=== PATIENT | female | born 1965 | race Caucasian/White ===

== ENCOUNTER 2018-02-25 19:06 | Emergency (ER) | payer OTHER ==
[~2018-02-25] VITALS: Ht 162.6 cm; Wt 45.4 kg
--- NOTE | 2018-02-25 19:24 | NUR ---
GARRY MORALES AT BEDSIDE.
--- NOTE | 2018-02-25 19:29 | NUR ---
Patient discharged to home in stable conditon. Written and verbal after care instructions given. Patient verbalizes understanding of instructions. Ambulated from ER with stable gait. All belongings with patient. VSS
[2018-02-25 19:32] VITALS: BP 102/68
== END 2018-02-25 19:34 | disposition home or self-care (01) ==
LOC: ER 19:06
DX: J20.8 Acute bronchitis due to other specified organisms (principal); B96.89 Other specified bacterial agents as the cause of diseases classified elsewhere; Z88.0 Allergy status to penicillin
CPT/HCPCS: A4663

== ENCOUNTER 2019-01-03 06:29 | Inpatient (IN) | payer OTHER ==
[2019-01-03] VITALS (19 sets, daily range): BP systolic 73–136; BP diastolic 30–74
[~2019-01-03] VITALS: Ht 160 cm; Wt 45.4 kg
--- NOTE | 2019-01-03 07:03 | NUR ---
Dr Carter at the bedside for MSE.
[2019-01-03] MEDS ORDERED: IPRATROPIUM BROMIDE 0.5 MG/2.5 ML NEBU NEB ONE (07:15)
[2019-01-03] MEDS ORDERED: ALBUTEROL SULFATE 2.5 MG/3 ML NEBU NEB ONE (07:15)
[2019-01-03] MEDS: methylPREDNISolone SOD SUCC 125 MG/2 ML VIAL IV ONE ×2 (07:16→08:01)
[2019-01-03] MEDS: IV NORMAL SALINE 1000 ML BAG IV ONE ×2 (07:18→08:00)
[2019-01-03] MEDS ORDERED: ALBUTEROL SULFATE 2.5 MG/3 ML NEBU ONE (07:20)
[2019-01-03] MEDS ORDERED: IPRATROPIUM BROMIDE 0.5 MG/2.5 ML NEBU ONE (07:20)
--- NOTE | 2019-01-03 07:22 | NUR ---
Pt refused HL, blood draw, IV meds. Dr Carter made aware, and spoke to Pt.
[2019-01-03] MEDS ORDERED: LEVOFLOXACIN 750MG/D5W 150 ML IV ONE ×2 (07:59→08:00)
[2019-01-03] MEDS ORDERED: methylPREDNISolone SOD SUCC 125 MG/2 ML VIAL ONE (07:59)
[2019-01-03] MEDS ORDERED: CEFEPIME HCL 1 G VIAL ONE (07:59)
[2019-01-03] MEDS ORDERED: CEFEPIME HCL 1 G in IV DEXTROSE 5% 50 ML IV ONE (08:00)
[2019-01-03] MEDS ORDERED: IV NORMAL SALINE 500 ML BAG IV ONE ×2 (08:00→08:45)
[2019-01-03] MEDS ORDERED: VANCOMYCIN IV 1,000 MG in IV DEXTROSE 5% 250 ML IV ONE (08:00)
[2019-01-03] MEDS ORDERED: VANCOMYCIN IV 200 ML ONE (08:00)
--- NOTE | 2019-01-03 08:00 | NUR ---
Pt agreed to HL, IV ABX, blood draw.
[2019-01-03 08:11] LABS: BASOPHILS # (AUTO) 0.1 K/uL (0.0-8.0); BASOPHILS % (AUTO) 0.5 % (0.0-2.0); EOSINOPHILS # (AUTO) 0.1 K/uL (0.0-0.7); EOSINOPHILS % (AUTO) 0.5 % (0.0-7.0); HEMOGLOBIN 12.1 g/dL (10.9-14.3); LYMPHOCYTES # (AUTO) 1.8 K/uL (20.0-40.0); LYMPHOCYTES % (AUTO) 10.7 % (20.5-51.5); MEAN CORPUSCULAR HEMOGLOBIN 30.7 uug (24.7-32.8); MEAN CORPUSCULAR HGB CONC 34 g/dL (32.3-35.6); MEAN CORPUSCULAR VOLUME 91.4 fL (75.5-95.3); MONOCYTES # (AUTO) 1.3 K/uL (2.0-10.0); MONOCYTES % (AUTO) 7.9 % (0.0-11.0); NEUTROPHILS # (AUTO) 13.7 K/uL (1.8-8.9); NEUTROPHILS % (AUTO) 80.4 % (38.5-71.5); PLATELET COUNT (AUTO) 291 K/uL (179-408); RED BLOOD CELL COUNT(AUTO) 3.93 MIL/uL (3.63-4.92)
[2019-01-03 08:17] LABS: CREATININE 0.9 mg/dL (0.6-1.3)
[2019-01-03 08:29] LABS: BILIRUBIN,DIRECT 0.5 mg/dL (0.0-0.2); BILIRUBIN,TOTAL 1.9 mg/dL (0.2-1.0); TOTAL PROTEIN, SERUM 7.5 g/dL (6.4-8.2)
--- NOTE | 2019-01-03 08:40 | NUR ---
Dr Carter made aware of Hypotension, order recieved.
--- NOTE | 2019-01-03 08:56 | NUR ---
Customer Support Specialist notified of PICC line insertion, ETA 1130 for PICC line Nurse Maryan.
--- NOTE | 2019-01-03 08:57 | NUR ---
Pt is resting in bed,denies pain. O2 on room air is 98%. No S/S Hypotension.
--- NOTE | 2019-01-03 09:10 | NUR ---
Placed a call to [facility] for admit, awaiting call back.
[2019-01-03] MEDS ORDERED: IV NORMAL SALINE 1000 ML BAG IV ONE (09:15)
[2019-01-03] MEDS ORDERED: DOPamine IV DRIP 400 MG/250ML 250 ML ONE (09:19)
[2019-01-03 10:00] LABS: *BILIRUBIN,URIN NEGATIVE (NEGATIVE); *BLOOD, URINE NEGATIVE (NEGATIVE); *CLARITY,URINE CLEAR (CLEAR); *COLOR,URINE YELLOW (YELLOW); *KETONES,URINE NEGATIVE (NEGATIVE); LEUKOCYTE ESTERASE ,URINE 1+ (NEGATIVE); NITRITE, URINE NEGATIVE (NEGATIVE); UGLUCOSE NEGATIVE (NEGATIVE)
--- NOTE | 2019-01-03 10:05 | NUR ---
Increased Dopamine to 3mcg/kg/hr, per protocol.
[2019-01-03 10:06] LABS: BACTERIA,URINE FEW /HPF (NONE SEEN); RBC,URINE NONE SEEN /HPF (0-3); SQUAMOUS EPITHELIAL CELL,UR FEW /HPF (NONE SEEN); WBC,URINE 0-3 /HPF (0-3)
--- NOTE | 2019-01-03 10:12 | NUR ---
Dopamin increased to 4mcg/kg/hr, pt is awake a/o X4. HR 107, BP 73/45.
--- NOTE | 2019-01-03 10:16 | NUR ---
Handsoff report given to Julita Wang CCU RN. Dr Iqbal is at the bedside.
--- NOTE | 2019-01-03 10:16 | NUR ---
Recieved report from [facility]. Pt in rm 4A, status changed to CCU. Pt is awake, alert and orientedx3. Appears weak and pale ut able to move all extremeties well. Pt is on Dopamine drip at 3mcg/kg/min infusing well via right AC patent and intact, to support for low BP in the 70-80systolic.
[2019-01-03 10:17] LABS: *AMPHETAMINE, URINE POSITIVE (NEGATIVE); *BARBITURATE, URINE NEGATIVE (NEGATIVE); *CANNABINOID, URINE NEGATIVE (NEGATIVE); *COCCAINE, URINE NEGATIVE (NEGATIVE); *OPIATE, URINE POSITIVE (NEGATIVE); *PHENCYCLIDINE SCREEN,URINE NEGATIVE (NEGATIVE)
--- NOTE | 2019-01-03 10:30 | NUR ---
1030 SBP is persistently low 78/48. Increased Dopamine drip up to 5mcg/kg/min. IV site is good. Pt denies of any chest pains. is anderson.
--- NOTE | 2019-01-03 10:40 | NUR ---
1040 Seen and examined by Liat SCOTT with new admitting orders.
[2019-01-03] MEDS ORDERED: IPRATROPIUM BROMIDE 0.5 MG/2.5 ML NEBU NEB PRN (11:00)
[2019-01-03] MEDS ORDERED: LORAZEPAM 2 MG/1 ML VIAL IV ONE (11:00)
[2019-01-03] MEDS ORDERED: ONDANSETRON 4 MG/2 ML VIAL IV PRN (11:00)
[2019-01-03] MEDS ORDERED: NOREPINEPHRINE BITARTRATE 8 MG in IV DEXTROSE 5% 500 ML IV PRN (11:00)
[2019-01-03] MEDS ORDERED: DEXTROSE 50% 50 ML DISP.SYRIN IV PRN (11:00)
[2019-01-03] MEDS ORDERED: ACETAMINOPHEN 325 MG TABLET PO PRN (11:00)
[2019-01-03] MEDS ORDERED: LEVOFLOXACIN 500 MG/D5W 500 MG in PREMIXED 1 EACH IV SCH (11:00)
[2019-01-03] MEDS ORDERED: LORAZEPAM 2 MG/1 ML VIAL IV PRN (11:00)
--- NOTE | 2019-01-03 11:00 | NUR ---
PICC line consent signed by patient. Appears very nervous and anxious. Spoke with MD that she wanted to go home. Pt is medicated with Ativan 0.5mg slow IVP as MD ordered. Pt able to sleep good.
--- NOTE | 2019-01-03 11:00 | NUR ---
Dopamine drip increased up to 7mcg/kg/min, SBP still low 73/47. Pt is alert, no c/o CP. IVF NS is infusing well.
[2019-01-03] MEDS ORDERED: LORAZEPAM 2 MG/1 ML VIAL ONE (11:05)
[2019-01-03] MEDS ORDERED: LEVOFLOXACIN 500 MG/D5W 100 ML ONE (11:06)
[2019-01-03] MEDS ORDERED: IV NS 1000 ML 1,000 ML IV ONE (12:00)
--- NOTE | 2019-01-03 12:15 | NUR ---
PICC line done at the bedside by PICC line nurse.
[2019-01-03] MEDS: BLOOD SUGAR DIAGNOSTIC 1 EACH STRIP VI SCH ×3 (12:30→23:51)
--- NOTE | 2019-01-03 13:45 | NUR ---
Dopamine drip DC'd and Levophed drip started at 4mcg/min via the PCC line right upper arm. SPB went up to 130-140 systolic. Decreased Levophed down to 2mcg/min. Pt is sleeping soundly.
[2019-01-03] MEDS ORDERED: INSULIN REGULAR, HUMAN 300 UNIT/3 ML VIAL ONE (14:14)
[2019-01-03] MEDS: INSULIN REGULAR, HUMAN 300 UNIT/3 ML VIAL SQ PRN ×3 (14:16→23:53)
--- NOTE | 2019-01-03 15:00 | NUR ---
1500 SBP is 120/73. Pt is sleeping soundly. Levophed drip dropped down to 1mcg/min.
--- NOTE | 2019-01-03 15:00 | NUR ---
Levophed is off. SBP up to 120/73. Liat SCOTT aware.
--- NOTE | 2019-01-03 19:00 | NUR ---
Transferred pt to ICU via gurney. Condition is stable.
--- NOTE | 2019-01-03 19:15 | NUR ---
CLINICAL PHARMACY NOTE: VANCOMYCIN DOSING Request for vancomycin dosing on 53 y/o female 162.56cm 45.36kg for pneumonia/sepsis Temp 99.4 BUN 13 Scr 0.9 WBC 17.0 also receiving Levaquin, got vancomycin 1gm in ER Continue vancomycin 750mg ivpb q20h estimated trough 16. Will order trough level prior to 4th dose.Will continue to monitor
--- NOTE | 2019-01-03 19:17 | NUR ---
Admitted to U3 a 53 y.o female patient DX: SEPSIS. AAO, NAD noted. Assessment done. With AZUCENA PICC line 3 lumen; NS infusing. O2 @ 2L NC; coughing non productively. Addendum: 01/03/19 at 2242 by LEONARDO PARK RN Amended: Links added. Addendum: 01/03/19 at 2243 by LEONARDO PARK RN Amended: Links added. Addendum: 01/03/19 at 4 by LEONARDO PARK RN Amended: Links added. Addendum: 01/03/19 at 4 by LEONARDO PARK RN Amended: Links added.
[2019-01-03] MEDS: IV NS 1000 ML 1,000 ML IV PRN (19:59)
--- NOTE | 2019-01-03 20:00 | NUR ---
Wants something to eat; pudding and sandwich served. Ate fairly well. CCU routines discussed with patient; verbalized understanding. Voided per bedpan clear nargis urine. Addendum: 01/03/19 at 2250 by LEONARDO PARK RN Amended: Links added.
--- NOTE | 2019-01-03 20:25 | NUR ---
C/o being anxious; requesting for Ativan. Seen by Marky ENNIS Medicated with Ativan. PICC line unused ports flushed with NS; no resistance. Addendum: 01/03/19 at 2246 by LEONARDO PARK RN Amended: Links added. Addendum: 01/03/19 at 2247 by LEONARDO PARK RN Amended: Links added. Addendum: 01/03/19 at 2250 by LEONARDO PARK RN Amended: Links added.
--- NOTE | 2019-01-03 21:15 | NUR ---
Patient sleeping after Ativan. Swab for Rapid Influenza A and B obtained and sent to lab. Addendum: 01/03/19 at 2305 by LEONARDO PARK RN Amended: Links added. Addendum: 01/03/19 at 2307 by LEONARDO PARK RN Amended: Links added.
--- NOTE | 2019-01-03 21:20 | NUR ---
Spoke to Kimo Iqbal NP re: patient's status. Order received to downgrade patient to RICH. Continuous Miner Carol walsh. Addendum: 01/03/19 at 2307 by LEONARDO PARK RN Amended: Links added.
--- NOTE | 2019-01-03 23:50 | NUR ---
Awake, voided per bedpan. Accu cilje=865; 2 units of Regular Insulin given subcutaneously as coverage. Patient c/o being anxious afterwards. With mild shaking noted. Medicated with Ativan IV. Addendum: 01/04/19 at 0035 by LEONARDO PARK RN Amended: Links added.
[2019-01-03] MEDS: LORAZEPAM 2 MG/1 ML VIAL IV PRN (23:54)
[2019-01-04] VITALS (7 sets, daily range): BP systolic 94–111; BP diastolic 50–64
[2019-01-04] MEDS: IV NS 1000 ML 1,000 ML IV PRN (03:40)
[2019-01-04] MEDS: LORAZEPAM 2 MG/1 ML VIAL IV PRN ×2 (03:40→10:03)
[2019-01-04 04:55] LABS: BASOPHILS # (AUTO) 0.1 K/uL (0.0-8.0); BASOPHILS % (AUTO) 0.4 % (0.0-2.0); HEMOGLOBIN 9.6 g/dL (10.9-14.3); LYMPHOCYTES # (AUTO) 0.8 K/uL (20.0-40.0); LYMPHOCYTES % (AUTO) 5.7 % (20.5-51.5); MEAN CORPUSCULAR HEMOGLOBIN 29.9 uug (24.7-32.8); MEAN CORPUSCULAR HGB CONC 33 g/dL (32.3-35.6); MEAN CORPUSCULAR VOLUME 90.6 fL (75.5-95.3); MONOCYTES # (AUTO) 0.9 K/uL (2.0-10.0); MONOCYTES % (AUTO) 6.4 % (0.0-11.0); NEUTROPHILS # (AUTO) 12.9 K/uL (1.8-8.9); NEUTROPHILS % (AUTO) 87.5 % (38.5-71.5); PLATELET COUNT (AUTO) 250 K/uL (179-408); WHITE BLOOD COUNT (AUTO) 14.7 K/uL (3.8-11.8)
[2019-01-04 04:59] LABS: BILIRUBIN,TOTAL 0.4 mg/dL (0.2-1.0); CREATININE 0.6 mg/dL (0.6-1.3); MAGNESIUM 1.7 mg/dL (1.8-2.4); PHOSPHOROUS 2.3 mg/dL (2.5-4.9); POTASSIUM 3.3 mmol/L (3.5-5.1); TOTAL PROTEIN, SERUM 5.7 g/dL (6.4-8.2)
[2019-01-04] MEDS ORDERED: VANCOMYCIN IV 750 MG in IV DEXTROSE 5% 250 ML IV SCH (05:00)
[2019-01-04 05:08] LABS: THYROID STIMULATING HORMONE 0.231 mIU/mL (0.358-3.740)
[2019-01-04] MEDS: BLOOD SUGAR DIAGNOSTIC 1 EACH STRIP VI SCH (05:14)
--- NOTE | 2019-01-04 05:45 | NUR ---
Transferred to 314 per bed. All belongings with patient upon transfer. VS stable. NAD noted. IVF infusing well to AZUCENA PICC line. Dressing with scant amount of bloody drainage. Addendum: 01/04/19 at 0630 by LEONARDO PARK RN Amended: Links added. Addendum: 01/04/19 at 0632 by LEONARDO PARK RN Amended: Links added.
--- NOTE | 2019-01-04 06:32 | NUR ---
Slept fairly well during the night. Medicated with Ativan IV x 3 for anxiety and mild tremors ? withdrawal; effective. Refused bath. Gown changed. Monitor SR rate 80's-90's. Addendum: 01/04/19 at 0632 by LEONARDO PARK RN Amended: Links added.
--- NOTE | 2019-01-04 08:00 | NUR ---
AWAKE ALERT AND ABLE TO FOLLOW COMMANDS, NO SS OF PAIN OR DISTRESS, BRP WITH STEADY GAIT. CNTINUE PLAN OF CARE
[2019-01-04] MEDS ORDERED: POTASSIUM CHLORIDE 20 MEQ TAB.PRT.SR PO ONE (08:15)
[2019-01-04] MEDS ORDERED: MAGNESIUM SULFATE/D5W 100 ML IV SCH (08:15)
[2019-01-04] MEDS ORDERED: PANTOPRAZOLE SODIUM 40 MG VIAL IV SCH (09:00)
[2019-01-04] MEDS ORDERED: CEFEPIME HCL 1 G in IV DEXTROSE 5% 50 ML IV SCH (09:00)
--- NOTE | 2019-01-04 09:30 | NUR ---
SEEN BY HOSPITALIST ON DUTY AND CHAMGED PATIENT STATUS TO TELE
--- NOTE | 2019-01-04 10:15 | NUR ---
PATIENT ESCAPE AT THE BACK DOOR AND WENT AMA IN SPITE OF EXPLAINING THE MEDICAL DISADVANTAGES. MECHANIC ASSISTANT AND HOSPITALIST NOTIFIED. PATIENT REFUSED TO SIGN AMA PAPERS, PICC LINE REMOVED WITH HESITANCY. NO SIGNS OF DISTRESS. PATIENT SAID "LEAVE ME ALONE I JUST WANT TO GO."
[2019-01-04] MEDS ORDERED: LEVOFLOXACIN 500 MG/D5W 500 MG in PREMIXED 1 EACH IV SCH (11:00)
[2019-01-05] MEDS ORDERED: LEVO500T2 PO (14:25)
== END 2019-01-04 10:15 | disposition left against medical advice (07) | DRG 720 ==
LOC: ER 06:33 → TRANSITION 16:04 → CCU 18:55 → TELE-TD3 01-04 05:45
PROVIDERS: ADMIT Registered Nurse; ATTEND Registered Nurse
PROC: B548ZZA Ultrasonography of Superior Vena Cava, Guidance (ICD-10-PCS; principal; 2019-01-03)
PROC: 02HV33Z Insertion of Infusion Device into Superior Vena Cava, Percutaneous Approach (ICD-10-PCS; principal; 2019-01-03)
DX: A41.9 Sepsis, unspecified organism (principal); J96.01 Acute respiratory failure with hypoxia; R65.21 Severe sepsis with septic shock; G92 Toxic encephalopathy; E44.0 Moderate protein-calorie malnutrition; J18.9 Pneumonia, unspecified organism; E87.1 Hypo-osmolality and hyponatremia; R17 Unspecified jaundice; R74.0 Nonspecific elevation of levels of transaminase and lactic acid dehydrogenase [LDH]; Z68.1 Body mass index [BMI] 19.9 or less, adult; Z88.0 Allergy status to penicillin; Z98.82 Breast implant status; F17.210 Nicotine dependence, cigarettes, uncomplicated; N39.0 Urinary tract infection, site not specified; F11.23 Opioid dependence with withdrawal; F10.10 Alcohol abuse, uncomplicated; Y90.9 Presence of alcohol in blood, level not specified; F19.10 Other psychoactive substance abuse, uncomplicated
CPT/HCPCS: 36415; 70030-TC; 71045; 80307; 83605; 83735; 84100; 84443; 85025; 87040; 87086; 87400; 93005; A4663; C9113; G0378; J0692; J1265; J1815; J1956; J2060; J2930; J3370; J3475; J3490; J3590; J7030; J7040; J7060

== ENCOUNTER 2019-01-05 01:39 | Inpatient (IN) | payer OTHER ==
[~2019-01-05] VITALS: Ht 162.6 cm; Wt 45.4 kg
--- NOTE | 2019-01-05 02:00 | NUR ---
Dr. López at bedside for MSE
[2019-01-05] MEDS ORDERED: LEVOFLOXACIN 750 MG TABLET PO ONE (02:15)
[2019-01-05] MEDS ORDERED: IV NORMAL SALINE 1000 ML BAG IV ONE (02:15)
[2019-01-05] MEDS ORDERED: CEFEPIME HCL 2 G in IV DEXTROSE 5% 100 ML IV ONE (02:15)
[2019-01-05 02:33] LABS: BASOPHILS % (AUTO) 0.4 % (0.0-2.0); EOSINOPHILS # (AUTO) 0.1 K/uL (0.0-0.7); EOSINOPHILS % (AUTO) 0.9 % (0.0-7.0); HEMATOCRIT 32.3 % (31.2-41.9); HEMOGLOBIN 10.6 g/dL (10.9-14.3); LYMPHOCYTES % (AUTO) 17.7 % (20.5-51.5); MEAN CORPUSCULAR HEMOGLOBIN 29.6 uug (24.7-32.8); MEAN CORPUSCULAR HGB CONC 33 g/dL (32.3-35.6); MEAN CORPUSCULAR VOLUME 90.3 fL (75.5-95.3); MONOCYTES # (AUTO) 0.7 K/uL (2.0-10.0); MONOCYTES % (AUTO) 5.9 % (0.0-11.0); NEUTROPHILS # (AUTO) 8.5 K/uL (1.8-8.9); NEUTROPHILS % (AUTO) 75.1 % (38.5-71.5); PLATELET COUNT (AUTO) 321 K/uL (179-408); RED BLOOD CELL COUNT(AUTO) 3.58 MIL/uL (3.63-4.92); WHITE BLOOD COUNT (AUTO) 11.4 K/uL (3.8-11.8)
[2019-01-05] MEDS ORDERED: LEVOFLOXACIN 750 MG TABLET ONE (02:33)
[2019-01-05] MEDS ORDERED: CEFEPIME HCL 1 G VIAL ONE (02:33)
[2019-01-05 02:44] LABS: BILIRUBIN,DIRECT 0.1 mg/dL (0.0-0.2); BILIRUBIN,TOTAL 0.5 mg/dL (0.2-1.0); CREATININE 0.7 mg/dL (0.6-1.3); POTASSIUM 3.7 mmol/L (3.5-5.1); TOTAL PROTEIN, SERUM 6.3 g/dL (6.4-8.2)
[2019-01-05] MEDS ORDERED: OSELTAMIVIR PHOSPHATE 75 MG CAPSULE PO ONE (03:00)
[2019-01-05] MEDS ORDERED: VANCOMYCIN IV 1,000 MG in IV DEXTROSE 5% 250 ML IV ONE (03:00)
--- NOTE | 2019-01-05 03:02 | NUR ---
CALLED [facility] FOR PANEL PLACEMENT
[2019-01-05] MEDS ORDERED: OSELTAMIVIR PHOSPHATE 75 MG CAPSULE ONE (03:11)
--- NOTE | 2019-01-05 03:14 | NUR ---
Dr. López on the phone with Trent Huang NP
[2019-01-05] MEDS ORDERED: IV D5 1/2 NS 1000 ML 1,000 ML IV PRN (03:17)
[2019-01-05] MEDS ORDERED: VANCOMYCIN IV 200 ML ONE (03:27)
[2019-01-05] MEDS ORDERED: ONDANSETRON 4 MG/2 ML VIAL IV PRN (03:30)
[2019-01-05] MEDS ORDERED: IPRATROPIUM BROMIDE 0.5 MG/2.5 ML NEBU NEB PRN (03:30)
[2019-01-05] MEDS ORDERED: ACETAMINOPHEN 325 MG TABLET PO PRN (03:30)
[2019-01-05] MEDS ORDERED: Z GUARD REMEDY PASTE 57 GM TUBE TOP PRN (03:30)
[2019-01-05] MEDS ORDERED: MAGNESIUM HYDROXIDE 30 ML LIQUID UDC PO PRN (03:30)
[2019-01-05] MEDS ORDERED: LORAZEPAM 2 MG/1 ML VIAL IV ONE (03:30)
[2019-01-05] MEDS ORDERED: ALBUTEROL SULFATE 2.5 MG/3 ML NEBU NEB PRN (03:30)
--- NOTE | 2019-01-05 03:44 | NUR ---
Pt. admitted to Tele , under care of Trent Huang SENIOR UX DEVELOPER rm 314 Belongs List completed. MRSA swab done
[2019-01-05 04:00] VITALS: BP 120/74
--- NOTE | 2019-01-05 04:30 | NUR ---
ADMITTED PATIENT IN TELE FLOOR UNDER THE CARE OF ANAYELI. PATIENT ALERT ORIENTED, NO SOB NO CHEST PAIN, TELE MONITOR SINUS RHYTHM AT 90'S. PATIENT HAS NO COMPLAIN OF PAIN AT THIS TIME. CONT TO MONITOR.
[2019-01-05] MEDS ORDERED: VANCOMYCIN IV 1,000 MG in IV DEXTROSE 5% 250 ML IV SCH (05:00)
--- NOTE | 2019-01-05 05:16 | NUR ---
VANCOMYCIN 0500 DOSE NOT GIVEN, TOO CLOSE FROM PREVIOUS ADMINISTRATION.
--- NOTE | 2019-01-05 06:58 | NUR ---
alert oriented, no sob no chest pain, tele monitor sinus rhythm, cont to monitor.
[2019-01-05 07:20] LABS: *BILIRUBIN,URIN NEGATIVE (NEGATIVE); *BLOOD, URINE NEGATIVE (NEGATIVE); *CLARITY,URINE CLEAR (CLEAR); *COLOR,URINE YELLOW (YELLOW); *KETONES,URINE NEGATIVE (NEGATIVE); *UROBILINOGEN,URINE 0.2 E.U./dl (NORMAL); LEUKOCYTE ESTERASE ,URINE 1+ (NEGATIVE); NITRITE, URINE NEGATIVE (NEGATIVE); UGLUCOSE NEGATIVE (NEGATIVE)
--- NOTE | 2019-01-05 07:20 | NUR ---
RECEIVED PATIENT IN BED ASLEEP BUT EASILY AROUSABLE ON ROUNDS ON ROOM AIR WITH NO S/S OF SHORTNESS OF BREATH AT THIS TIME NO COUGHING EPISODES TELE IS SR IVF IN PROGRESS ORDERED CALL LIGHTS AND PERSONAL BELONGINGS ARE WITHIN EASY REACH AT THIS TIME MADE COMFORTABLE AND WILL CONTINUE TO OBSERVE.
[2019-01-05 07:36] LABS: BACTERIA,URINE NONE SEEN /HPF (NONE SEEN); SQUAMOUS EPITHELIAL CELL,UR MODERATE /HPF (NONE SEEN); YEAST,URINE FEW /HPF (NONE SEEN)
[2019-01-05] MEDS ORDERED: PANTOPRAZOLE SODIUM 40 MG VIAL IV SCH (09:00)
[2019-01-05] MEDS ORDERED: CEFEPIME HCL 1 G in IV DEXTROSE 5% 50 ML IV SCH (09:00)
[2019-01-05 11:27] VITALS: BP 128/59
[2019-01-05] MEDS ORDERED: VANCOMYCIN IV 750 MG in IV DEXTROSE 5% 250 ML IV SCH (12:00)
--- NOTE | 2019-01-05 14:19 | NUR ---
Clinical Pharmacy Note: Vancomycin Pharmacy to Dose Subjective: To start vancomycin in this 53 y/o female for indication of Pneumonia Objective: Weight 45kg height 162cm BUN/Scr 9/0.7 wbc 11.4 temp 97.9 1gm in ER 01/05 @330 Assessment/Plan Will start vanco regimen of 750mg q17hr for estimated trough of 15.7, first dose today at 1200. Will order trough before 4th scheduled dose (not ordered yet). Will follow
--- NOTE | 2019-01-05 14:23 | NUR ---
PER LEDA SCOTT PATIENT WILL BE DISCHARGED TODAY PATIENT AWARE AWAITING FOR ORDERS AND PRESCRIPTIONS.
[2019-01-05] MEDS ORDERED: LEVO500T2 PO (14:25)
[2019-01-05 15:25] VITALS: BP 116/71
--- NOTE | 2019-01-05 16:41 | NUR ---
AWAITING FOR DISCHARGE ORDERS PATIENT IS ANXIOUS TO LEAVE SPOKE WITH MICHAEL STATED WILL COMPLETE SOON POSSIBLE PATIENT NOTIFIED.
--- NOTE | 2019-01-05 17:05 | NUR ---
DISCHARGE ORDER RECEIVED FROM SHEEBA PATIENT DISCHARGED PICKED UP BY HER FRIEND TONI SULLIVAN REMOVED PATIENT INSTRUCTED TO CHINA DECORATOR HER MEDICATION LEVAQUIN AT THE [facility]SULL[facility]AN WAS SENT ELECTRONICALLY BY LEDA SCOTT AND CONFIRMED BY ASHLEE BOTH PATIENT AND TONI HER FRIEND EXPRESSED UNDERSTANDING.PATIENT WAS ALSO INSTRUCTED TO CALL HER PRIMARY DOCTOR FOR A FOLLOW UP APPOINTMENT WITHIN THE NEXT ONE WEEK AND SHE EXPRESSED UNDERSTANDING.
[2019-01-05] MEDS ORDERED: CULTURELLE CAPSULE PO SCH (21:00)
[2019-01-05] MEDS ORDERED: LEVOFLOXACIN 500 MG/D5W 500 MG in PREMIXED 1 EACH IV SCH (21:00)
== END 2019-01-05 17:05 | disposition home or self-care (01) | DRG 139 ==
LOC: ER 01:49 → TELE3 04:10
PROVIDERS: ADMIT Hospitalist; ATTEND Registered Nurse
DX: J18.9 Pneumonia, unspecified organism (principal); E44.0 Moderate protein-calorie malnutrition; J91.8 Pleural effusion in other conditions classified elsewhere; F11.10 Opioid abuse, uncomplicated; N39.0 Urinary tract infection, site not specified; F17.210 Nicotine dependence, cigarettes, uncomplicated; Z68.1 Body mass index [BMI] 19.9 or less, adult; Z98.82 Breast implant status
CPT/HCPCS: 36415; 70030-TC; 71045; 83605; 85025; 87040; 87086; 87400; 93005; A4663; C9113; G0378; J0692; J1956; J2060; J3370; J3490; J7030; J7060

== ENCOUNTER 2021-02-24 06:33 | Emergency (ER) | payer OTHER ==
[~2021-02-24] VITALS: Ht 160 cm; Wt 45.4 kg
[~2021-02-24 06:33] MED LIST: LEVO500T2 PO
[2021-02-24] MEDS ORDERED: CLIN-118 PO (06:49)
--- NOTE | 2021-02-24 06:55 | NUR ---
Patient discharged to home in stable condition. Written and verbal after care instructions given. Patient verbalizes understanding of instructions. Stressed follow up or return to ER for worsening s/s.
== END 2021-02-24 06:55 | disposition home or self-care (01) ==
LOC: ER 06:35
DX: K08.89 Other specified disorders of teeth and supporting structures (principal); Z88.0 Allergy status to penicillin; Z87.01 Personal history of pneumonia (recurrent); Z98.82 Breast implant status
CPT/HCPCS: A4663

== ENCOUNTER 2021-03-09 02:02 | Emergency (ER) | payer OTHER ==
[~2021-03-09] VITALS: Ht 162.6 cm; Wt 45.4 kg
[~2021-03-09 02:02] MED LIST changes: +CLIN-118 PO
[2021-03-09] MEDS ORDERED: CLIN-118 PO (02:40)
--- NOTE | 2021-03-09 02:52 | NUR ---
Patient discharged to home in stable condition. Written and verbal after care instructions given. Patient verbalizes understanding of instructions. Stressed follow up or return to ER for worsening s/s. Steady gait.
[2021-03-09 02:53] VITALS: BP 101/65
== END 2021-03-09 02:53 | disposition home or self-care (01) ==
LOC: ER 02:04
DX: K02.9 Dental caries, unspecified (principal); Z76.0 Encounter for issue of repeat prescription; Z88.0 Allergy status to penicillin
CPT/HCPCS: A4663

== ENCOUNTER 2021-06-01 10:00 | Emergency (ER) | payer OTHER ==
[~2021-06-01] VITALS: Ht 162.6 cm; Wt 45.4 kg
--- NOTE | 2021-06-01 10:16 | NUR ---
Dr Rush seen and examined the pt.
--- NOTE | 2021-06-01 10:34 | NUR ---
Pt Refused blood draw, Ct scan and all orders that Dr Rush suggested/ordered.
[2021-06-01] MEDS ORDERED: IBUP-1955 PO (11:04)
[2021-06-01] MEDS ORDERED: CLIN300C12 PO (11:04)
--- NOTE | 2021-06-01 11:12 | NUR ---
Patient does not wish to proceed with medical care recommended by Dr. Scott). Patient given information related to possible complications, up to and including , which could occur as a result of leaving the hospital at this time. Patient verbalizes understanding of risks involved due to leaving against medical advice. Patient has signed AMA form.
[2021-06-01 11:13] VITALS: BP 123/63
== END 2021-06-01 11:14 | disposition left against medical advice (07) ==
LOC: ER 10:00
DX: K04.7 Periapical abscess without sinus (principal); Z88.0 Allergy status to penicillin; Z98.82 Breast implant status
CPT/HCPCS: A4663